=== PATIENT | female | born 1945 | race Caucasian/White ===

== ENCOUNTER 2021-11-13 08:02 | Inpatient (IN) | payer MEDICARE, OTHER ==
[2021-11-07 14:59] LABS: CLARITY,URINE SLIGHTLY CLOUDY (Clear); COLOR,URINE YELLOW (Yellow); GLUCOSE, URINE NEGATIVE (Neg); KETONES,URINE 15 mg/dl (Neg); LEUKOCYTE ESTERASE ,URINE NEGATIVE (Neg); NITRITES, URINE NEGATIVE (Neg); OCCULT BLOOD,URINE NEGATIVE (Neg); PH,URINE 5.5 (4.8-8.0); PROTEIN,URINE NEGATIVE (Neg); UROBILINOGEN,URINE 0.2 E.U/dL (0.2-1.0)
[2021-11-07 15:01] LABS: UA COLLECTION TYPE CLN CATCH MIDSTREAM
[2021-11-07 15:04] LABS: BACTERIA,URINE FEW /HPF (Neg); MUCUS STRANDS MODERATE /LPF (Neg); RBC,URINE 0-2 /HPF (0-2); SQUAMOUS EPITHELIAL CELL,UR MODERATE /LPF (FEW); WBC,URINE 0-4 /HPF (0-4)
[2021-11-07 15:05] LABS: TRANSITIONAL EPI CELLS,URINE FEW /HPF
[2021-11-07 15:08] LABS: BASOPHILS # (AUTO) 0.1 X10'3 (0-0.2); EOSINOPHILS # (AUTO) 0.3 X10'3 (0-0.9); EOSINOPHILS % (AUTO) 5.2 % (0-6); LYMPHOCYTES # (AUTO) 1.5 X10'3 (1.1-4.8); LYMPHOCYTES % (AUTO) 26.1 % (21-51); MEAN CORPUSCULAR HEMOGLOBIN 31.1 PG (27.0-31.0); MEAN CORPUSCULAR HGB CONC 33.3 g/dL (33.0-36.5); MEAN CORPUSCULAR VOLUME 93.5 FL (78-98); MEAN PLATELET VOLUME 8.8 FL (7.4-10.4); MONOCYTES # (AUTO) 0.5 X10'3 (0-0.9); MONOCYTES % (AUTO) 9.3 % (2-12); NEUTROPHILS # (AUTO) 3.4 X10'3 (1.8-7.7); NEUTROPHILS % (AUTO) 57.4 % (42-75); PRE OP HEMATOCRIT 42.4 % (35.0-45.0); PRE OP HEMOGLOBIN 14.1 g/dL (12.0-16.0); PRE OP PLATELET COUNT 239 X10'3 (140-440); RED BLOOD COUNT 4.53 X10'6 (4.20-5.60); RED CELL DISTRIBUTION WIDTH 15.2 % (11.5-14.5)
[2021-11-07 15:14] LABS: APTT 25 SECONDS (22-32); PRE OP INR 1.1 INR; PRE OP PROTIME 11.3 SECONDS (9.0-12.0)
[2021-11-07 15:22] LABS: ALBUMIN 3.8 G/DL (3.4-5.0); ALBUMIN/GLOBULIN RATIO 0.9 (1.1-1.5); ALKALINE PHOSPHATASE 56 IU/L (46-116); BLOOD UREA NITROGEN 30 MG/DL (7-18); BUN/CREATININE RATIO 31.3 (6.6-38.0); CALCIUM 9.3 MG/DL (8.5-10.1); CHLORIDE 105 MMOL/L (99-107); CREATININE 0.96 MG/DL (0.40-0.90); PRE OP ALT 45 U/L (30-65); PRE OP ANION GAP 9 (8-16); PRE OP AST 31 U/L (10-37); PRE OP BILIRUB, TOTAL 0.4 MG/DL (0.0-1.0); PRE OP GLUCOSE 99 MG/DL (70-104); PRE OP SODIUM 141 MMOL/L (135-145); TOTAL CARBON DIOXIDE 27.1 MMOL/L (24-32); TOTAL PROTEIN 7.9 G/DL (6.4-8.2); eGFR 57 ML/MIN
[~2021-11-13] VITALS: Ht 172.7 cm; Wt 102.6 kg
[2021-11-13] VITALS (24 sets, daily range): BP systolic 135–176; BP diastolic 47–83
[~2021-11-13 08:02] MED LIST: AMLO2.5T2 PO; BACL-11 PO; CELE-193 PO; CLOP75TA15 PO; DOCUMENT DATE & TIME OF BETA-BLOCKER PO ONE; ESCI10TA PO; GABAPENTIN; LISI40TA13 PO; METO-539 PO; NITR0.4T48 SL; PANT-47 PO; famotidine 20mg tablet PO ONE
[2021-11-13] MEDS ORDERED: GABA300C PO (08:47)
[2021-11-13] MEDS: ringers solution, lacted 1,000 ML IV SCH ×3 (08:49→18:12)
[2021-11-13] MEDS ORDERED: BUPIVAcaine 0.5% inj/PF 30 ML ONE (10:56)
[2021-11-13] MEDS ORDERED: midazolam 1 mg/ML 2ml injection ONE (11:26)
[2021-11-13] MEDS ORDERED: sevoflurane 250ml liquid IH ONE (11:26)
[2021-11-13] MEDS ORDERED: propofol inj 20 ML IV ONE (11:27)
[2021-11-13] MEDS ORDERED: rocuronium 10mg/ml inj IV ONE (11:27)
[2021-11-13] MEDS ORDERED: fentaNYL /PF 50mcg/ml 5ml ampule ONE (11:27)
[2021-11-13] MEDS ORDERED: ceFOXitin 2GM-NS 100mL ADDvant 100 ML IV ONE (11:30)
[2021-11-13] MEDS ORDERED: ceFOXitin 1000 MG inj ONE ×2 (11:49)
[2021-11-13] MEDS ORDERED: BUPIVAcaine 0.5% inj/PF 30 ml vial IJ ONE (12:02)
[2021-11-13] MEDS ORDERED: morphine 2 MG/ML inj. syringe IV PRN (12:15)
[2021-11-13] MEDS ORDERED: ondansetron/PF 4mg/2ml inj IV PRN (12:15)
[2021-11-13] MEDS ORDERED: meperidine/PF 25mg/ml syringe IV PRN ×2 (12:15)
[2021-11-13] MEDS ORDERED: proCHLORperazine 10 MG/2 ml inj IV PRN (12:15)
[2021-11-13] MEDS ORDERED: morphine 4 MG/ML inj SYRINge IV PRN (12:15)
[2021-11-13] MEDS ORDERED: ringers solution, lacted 1,000 ML IV SCH (12:15)
[2021-11-13] MEDS ORDERED: ondansetron/PF 4mg/2ml inj ONE (12:27)
[2021-11-13] MEDS ORDERED: dexamethasone sod phosphate 4mg/ml inj. ONE (12:27)
[2021-11-13] MEDS ORDERED: neostigmine methylsulfate 1 MG/ML 10ml vial ONE (12:38)
[2021-11-13] MEDS ORDERED: glycopyrrolate 0.2mg/ml inj ONE (12:39)
--- NOTE | 2021-11-13 13:32 | NUR ---
Received from OR via BED, accompanied by Anesthesiologist DR HANNA and report given by Anesthesiologist AND SENIOR BUSINESS MANAGER. PT DROWSY, ABDOMEN W/RIGHT SIDED INCISION W/DERMABOND CDI, KATHERINE TO BULB SX RIGHT ABDOMEN W/SANGUINOUS DRAINAGE. Addendum: 11/13/21 at 1358 by Kasey Gonzalez RN Amended: Links added.
[2021-11-13] MEDS: meperidine/PF 25mg/ml syringe IV PRN ×3 (13:40→14:32)
[2021-11-13] MEDS ORDERED: acetaminophen 1,000mg/100ml IV 100 ML IV ONE (14:50)
[2021-11-13] MEDS ORDERED: naloxone 0.4 mg/ml inj IV PRN (15:30)
[2021-11-13] MEDS ORDERED: ceFOXitin 1 GM/D5W 50mL IVPB 100 ML IV SCH (16:00)
[2021-11-13] MEDS ORDERED: ceFOXitin inj 1,000 MG in dextrose 5%-water 100 ML IV SCH (16:02)
--- NOTE | 2021-11-13 16:02 | NUR ---
Report called to receiving nurse. Transferred via BED W/2 BAGS Belongings AND 1 CANE TO ROOM 360B. RECEIVING RN AT BEDSIDE TO RECEIVE PT, BLL, CALL LIGHT GIVEN, SIDE RAILS UP X 2. PT STATES PAIN HAS IMPROVED. Special Issues communicated to receiving nurse. YES. Addendum: 11/13/21 at 1608 by Kasey Gonzalez RN Amended: Links added.
--- NOTE | 2021-11-13 18:13 | NUR ---
Problems reprioritized. Patient report given, questions answered & plan of care reviewed with Lilly ALBERTS.
--- NOTE | 2021-11-13 18:15 | NUR ---
Patient in room [facility]. I have received report from LEXUS Blanchard and had the opportunity to ask questions and assume patient care. Addendum: 11/13/21 at 1915 by Mino River RN Amended: Links added.
[2021-11-13] MEDS: HYDROcodone/acetaminophen 5mg/325mg tablet PO PRN (19:21)
[2021-11-13] MEDS ORDERED: baclofen 10mg tablet PO PRN (19:25)
[2021-11-13] MEDS: potassium CL 20mEq in D5-1/2NS 1,000 ML IV SCH (19:29)
[2021-11-13] MEDS ORDERED: nitroGLYCERIN 0.4mg SUBLingual tab SL PRN (19:30)
[2021-11-13] MEDS: pantoprazole 40mg Tablet.DR PO SCH ×2 (21:00→21:27)
[2021-11-13] MEDS ORDERED: clopidogrel 75mg tablet PO SCH (21:00)
[2021-11-13] MEDS: ESCITALOPRAM OXALATE 5 MG TABLET PO SCH (21:25)
[2021-11-13] MEDS: celeCOXIB 100mg capsule PO SCH (21:26)
[2021-11-13] MEDS: gabapentin 300mg capsule PO SCH (21:26)
[2021-11-13] MEDS: metoprolol succinate 25mg (24-HOUR) SR. Tablet PO SCH (21:26)
[2021-11-13] MEDS: HYDROcodone/acetaminophen 10/325mg tab PO PRN (23:22)
[2021-11-14] VITALS (12 sets, daily range): BP systolic 117–156; BP diastolic 44–86
[2021-11-14] MEDS: potassium CL 20mEq in D5-1/2NS 1,000 ML IV SCH ×4 (01:01→23:30)
[2021-11-14] MEDS: HYDROcodone/acetaminophen 10/325mg tab PO PRN ×3 (03:46→20:33)
--- NOTE | 2021-11-14 06:29 | NUR ---
Problems reprioritized. Patient report given, questions answered & plan of care reviewed with LEXUS Boykin. Addendum: 11/14/21 at 0629 by Mino River RN Amended: Links added.
[2021-11-14 06:38] LABS: BASOPHILS % (AUTO) 0.1 % (0-1); EOSINOPHILS % (AUTO) 0.1 % (0-6); HEMATOCRIT 40.9 % (35.0-45.0); HEMOGLOBIN 13.5 g/dl (12.0-16.0); LYMPHOCYTES # (AUTO) 0.8 X10'3 (1.1-4.8); LYMPHOCYTES % (AUTO) 9.7 % (21-51); MEAN CORPUSCULAR HEMOGLOBIN 30.7 PG (27.0-31.0); MEAN PLATELET VOLUME 8.8 FL (7.4-10.4); MONOCYTES # (AUTO) 0.8 X10'3 (0-0.9); MONOCYTES % (AUTO) 9.7 % (2-12); NEUTROPHILS # (AUTO) 6.9 X10'3 (1.8-7.7); NEUTROPHILS % (AUTO) 80.4 % (42-75); PLATELET COUNT 224 X10'3 (140-440); RED CELL DISTRIBUTION WIDTH 15.4 % (11.5-14.5); WHITE BLOOD COUNT 8.6 X10'3 (4.5-11.0)
[2021-11-14] MEDS: gabapentin 300mg capsule PO SCH ×2 (07:54→20:31)
[2021-11-14] MEDS: amLODIPine 5mg tablet PO SCH (07:54)
[2021-11-14] MEDS: lisinopril 20mg tablet PO SCH (07:54)
[2021-11-14] MEDS: HYDROmorphone inj. 0.5 MG/0.5 ML DISP.SYRIN IV PRN ×2 (10:25→14:39)
[2021-11-14] MEDS ORDERED: fentaNYL/PF 50MCG/1 ML 2ML syringe ONE (14:30)
[2021-11-14] MEDS ORDERED: diphenhydrAMINE 50 mg/ml inj ONE (14:32)
[2021-11-14] MEDS ORDERED: MIDAZolam 1 MG/ML 5ML VIAL ONE (14:32)
[2021-11-14] MEDS ORDERED: iohexol 300 MG/1 ML 50ml polymer ONE (14:32)
[2021-11-14] MEDS ORDERED: LIDOcaine Viscous 15ml cup ONE (14:32)
[2021-11-14] MEDS ORDERED: glucagon, human recombinant 1mg kit ONE (14:32)
[2021-11-14] MEDS: ESCITALOPRAM OXALATE 5 MG TABLET PO SCH (20:31)
[2021-11-14] MEDS: celeCOXIB 100mg capsule PO SCH (20:32)
[2021-11-14] MEDS: pantoprazole 40mg Tablet.DR PO SCH (20:32)
[2021-11-14] MEDS: metoprolol succinate 25mg (24-HOUR) SR. Tablet PO SCH (20:39)
[2021-11-15] VITALS (8 sets, daily range): BP systolic 131–152; BP diastolic 52–76
[2021-11-15] MEDS: potassium CL 20mEq in D5-1/2NS 1,000 ML IV SCH ×2 (01:51→11:01)
[2021-11-15] MEDS: HYDROcodone/acetaminophen 10/325mg tab PO PRN ×2 (01:54→17:29)
[2021-11-15 06:24] LABS: BASOPHILS # (AUTO) 0.1 X10'3 (0-0.2); BASOPHILS % (AUTO) 0.7 % (0-1); EOSINOPHILS # (AUTO) 0.4 X10'3 (0-0.9); EOSINOPHILS % (AUTO) 5.3 % (0-6); HEMATOCRIT 37.5 % (35.0-45.0); HEMOGLOBIN 12.7 g/dl (12.0-16.0); LYMPHOCYTES # (AUTO) 1.3 X10'3 (1.1-4.8); LYMPHOCYTES % (AUTO) 17.4 % (21-51); MEAN CORPUSCULAR HEMOGLOBIN 31.3 PG (27.0-31.0); MEAN CORPUSCULAR HGB CONC 33.7 g/dL (33.0-36.5); MEAN CORPUSCULAR VOLUME 92.9 FL (78-98); MEAN PLATELET VOLUME 9.2 FL (7.4-10.4); MONOCYTES # (AUTO) 0.8 X10'3 (0-0.9); MONOCYTES % (AUTO) 10.8 % (2-12); NEUTROPHILS # (AUTO) 4.9 X10'3 (1.8-7.7); NEUTROPHILS % (AUTO) 65.8 % (42-75); PLATELET COUNT 185 X10'3 (140-440); RED BLOOD COUNT 4.04 X10'6 (4.20-5.60); RED CELL DISTRIBUTION WIDTH 15.2 % (11.5-14.5); WHITE BLOOD COUNT 7.4 X10'3 (4.5-11.0)
--- NOTE | 2021-11-15 06:33 | NUR ---
Problems reprioritized. Patient report given, questions answered & plan of care reviewed with LEXUS Alcantara.
--- NOTE | 2021-11-15 06:42 | NUR ---
Patient in room [facility]. I have received report from celia ALBERTS and had the opportunity to ask questions and assume patient care.
[2021-11-15] MEDS: amLODIPine 5mg tablet PO SCH (08:58)
[2021-11-15] MEDS: lisinopril 20mg tablet PO SCH (08:58)
[2021-11-15] MEDS: gabapentin 300mg capsule PO SCH ×2 (08:58→20:46)
--- NOTE | 2021-11-15 13:23 | NUR ---
patient seen by Dr Steward, patient is to start regular diet. KATHERINE drainage observed, greenish color . Dr Steward aware. [place] given x1 for pain with good effect. BSx$ quad patient is passing gas.
--- NOTE | 2021-11-15 18:45 | NUR ---
Problems reprioritized. Patient report given, questions answered & plan of care reviewed with ramiro ALBERTS.
[2021-11-15] MEDS: clopidogrel 75mg tablet PO SCH (20:47)
[2021-11-15] MEDS: pantoprazole 40mg Tablet.DR PO SCH (20:47)
[2021-11-15] MEDS: celeCOXIB 100mg capsule PO SCH (20:47)
[2021-11-15] MEDS: metoprolol succinate 25mg (24-HOUR) SR. Tablet PO SCH (20:47)
[2021-11-15] MEDS: ESCITALOPRAM OXALATE 5 MG TABLET PO SCH (20:48)
[2021-11-15] MEDS: HYDROcodone/acetaminophen 5mg/325mg tablet PO PRN (23:49)
[2021-11-16] VITALS: BP 144/66
[2021-11-16] MEDS: potassium CL 20mEq in D5-1/2NS 1,000 ML IV SCH ×2 (01:55→18:31)
[2021-11-16] MEDS: HYDROcodone/acetaminophen 5mg/325mg tablet PO PRN (05:38)
--- NOTE | 2021-11-16 06:47 | NUR ---
Patient in room [facility]. I have received report from Bessie ALBERTS and had the opportunity to ask questions and assume patient care.
[2021-11-16 07:16] VITALS: BP 161/67
[2021-11-16 07:37] LABS: BASOPHILS % (AUTO) 0.8 % (0-1); EOSINOPHILS # (AUTO) 0.5 X10'3 (0-0.9); EOSINOPHILS % (AUTO) 8.8 % (0-6); HEMATOCRIT 36.6 % (35.0-45.0); HEMOGLOBIN 12.2 g/dl (12.0-16.0); LYMPHOCYTES % (AUTO) 15.9 % (21-51); MEAN CORPUSCULAR HEMOGLOBIN 31.5 PG (27.0-31.0); MEAN CORPUSCULAR HGB CONC 33.4 g/dL (33.0-36.5); MEAN CORPUSCULAR VOLUME 94.4 FL (78-98); MEAN PLATELET VOLUME 8.6 FL (7.4-10.4); MONOCYTES # (AUTO) 0.8 X10'3 (0-0.9); MONOCYTES % (AUTO) 12.5 % (2-12); NEUTROPHILS # (AUTO) 3.7 X10'3 (1.8-7.7); PLATELET COUNT 182 X10'3 (140-440); RED BLOOD COUNT 3.88 X10'6 (4.20-5.60)
[2021-11-16] MEDS: gabapentin 300mg capsule PO SCH ×2 (07:47→19:17)
[2021-11-16] MEDS: lisinopril 20mg tablet PO SCH (07:48)
[2021-11-16] MEDS: amLODIPine 5mg tablet PO SCH (07:48)
[2021-11-16 12:08] VITALS: BP 157/62
[2021-11-16] MEDS ORDERED: magnesium hydroxide 30ml (MOM) UD suspension PO ONE (12:15)
--- NOTE | 2021-11-16 18:29 | NUR ---
Problems reprioritized. Patient report given, questions answered & plan of care reviewed with Diya ALBERTS.
[2021-11-16 19:00] VITALS: BP 144/72
[2021-11-16] MEDS: HYDROcodone/acetaminophen 10/325mg tab PO PRN ×2 (19:18→23:56)
[2021-11-16] MEDS: metoprolol succinate 25mg (24-HOUR) SR. Tablet PO SCH (20:36)
[2021-11-16] MEDS: ESCITALOPRAM OXALATE 5 MG TABLET PO SCH (20:36)
[2021-11-16] MEDS: clopidogrel 75mg tablet PO SCH (20:36)
[2021-11-16] MEDS: celeCOXIB 100mg capsule PO SCH (20:36)
[2021-11-16] MEDS: pantoprazole 40mg Tablet.DR PO SCH (20:36)
[2021-11-17] VITALS: BP 131/67
--- NOTE | 2021-11-17 06:28 | NUR ---
Patient in room [facility]. I have received report from ARDEN ALBERTS and had the opportunity to ask questions and assume patient care.
[2021-11-17 06:58] VITALS: BP 168/72
[2021-11-17] MEDS: lisinopril 20mg tablet PO SCH (07:08)
[2021-11-17] MEDS: amLODIPine 5mg tablet PO SCH (07:09)
[2021-11-17] MEDS: gabapentin 300mg capsule PO SCH ×2 (07:09→20:44)
[2021-11-17] MEDS: HYDROcodone/acetaminophen 10/325mg tab PO PRN ×3 (07:09→17:06)
[2021-11-17 08:46] LABS: BASOPHILS # (AUTO) 0.1 X10'3 (0-0.2); EOSINOPHILS # (AUTO) 0.6 X10'3 (0-0.9); EOSINOPHILS % (AUTO) 11.8 % (0-6); HEMATOCRIT 38.5 % (35.0-45.0); HEMOGLOBIN 12.9 g/dl (12.0-16.0); LYMPHOCYTES # (AUTO) 0.9 X10'3 (1.1-4.8); LYMPHOCYTES % (AUTO) 19.2 % (21-51); MEAN CORPUSCULAR HEMOGLOBIN 31.5 PG (27.0-31.0); MEAN CORPUSCULAR HGB CONC 33.5 g/dL (33.0-36.5); MEAN CORPUSCULAR VOLUME 94.1 FL (78-98); MEAN PLATELET VOLUME 8.6 FL (7.4-10.4); MONOCYTES # (AUTO) 0.6 X10'3 (0-0.9); MONOCYTES % (AUTO) 12.6 % (2-12); NEUTROPHILS # (AUTO) 2.7 X10'3 (1.8-7.7); NEUTROPHILS % (AUTO) 55.4 % (42-75); PLATELET COUNT 185 X10'3 (140-440); RED BLOOD COUNT 4.09 X10'6 (4.20-5.60); WHITE BLOOD COUNT 4.9 X10'3 (4.5-11.0)
[2021-11-17 08:58] LABS: ALANINE AMINOTRANSFERASE 35 U/L (12-78); ALBUMIN 2.7 G/DL (3.4-5.0); ALBUMIN/GLOBULIN RATIO 0.7 (1.1-1.5); ALKALINE PHOSPHATASE 45 IU/L (46-116); ASPARTATE AMINO TRANSFERASE 22 U/L (10-37); BILIRUBIN,TOTAL 0.6 MG/DL (0.1-1.0); BLOOD UREA NITROGEN 14 MG/DL (7-18); BUN/CREATININE RATIO 18.7 (6.6-38.0); CALCIUM 8.7 MG/DL (8.5-10.1); CHLORIDE 105 MMOL/L (99-107); CREATININE 0.75 MG/DL (0.40-0.90); GLUCOSE 99 MG/DL (70-104); SODIUM 144 MMOL/L (135-145); TOTAL PROTEIN 6.8 G/DL (6.4-8.2); eGFR 75 ML/MIN
[2021-11-17 09:00] LABS: ANION GAP 8 (8-16); TOTAL CARBON DIOXIDE 30.8 MMOL/L (24-32)
--- NOTE | 2021-11-17 10:19 | NUR ---
Initial: Pt admitted w/ cholecystitis, underwent open hemicholecystectomy this admit per EMR. Currently on Regular diet since 11/15 w/ mostly 75% avg intake of meals, previously 100% on clears. Pt could benefit from Luis Antonio smoothies BID to assist w/ wound healing. LBM 11/12, received one time does of MoM, recommend additional routine bowel care if MD agreeable. Will continue to monitor. Recs: 1. Continue Regular diet as tolerated 2. Luis [place] smoothies BIDBD; pending MD verification 3. Routine bowel care 4. Weekly wts Addendum: 11/17/21 at [address] Amended: Links added.
[2021-11-17 11:36] VITALS: BP 139/62
[2021-11-17] MEDS ORDERED: magnesium hydroxide 30ml (MOM) UD suspension PO ONE (13:30)
[2021-11-17] MEDS: potassium CL 20mEq in D5-1/2NS 1,000 ML IV SCH (17:27)
[2021-11-17] MEDS ORDERED: JUVEN Smoothie Arginine/Glut./Ca2+Bmb (Juven 19.3pkt) 240ml cup PO SCH (17:30)
--- NOTE | 2021-11-17 18:33 | NUR ---
Patient in room [facility]. I have received report from Cecelia ALBERTS and had the opportunity to ask questions and assume patient care.
--- NOTE | 2021-11-17 18:48 | NUR ---
Problems reprioritized. Patient report given, questions answered & plan of care reviewed with jonelle luo.
[2021-11-17 19:00] VITALS: BP 156/63
[2021-11-17] MEDS: pantoprazole 40mg Tablet.DR PO SCH (20:45)
[2021-11-17] MEDS: metoprolol succinate 25mg (24-HOUR) SR. Tablet PO SCH (20:45)
[2021-11-17] MEDS: celeCOXIB 100mg capsule PO SCH (20:45)
[2021-11-17] MEDS: ESCITALOPRAM OXALATE 5 MG TABLET PO SCH (20:45)
[2021-11-17] MEDS: clopidogrel 75mg tablet PO SCH (20:45)
[2021-11-17 22:00] VITALS: BP 172/68
[2021-11-18 02:00] VITALS: BP 133/61
--- NOTE | 2021-11-18 02:57 | NUR ---
patient appears comfortable . Continuous pulse ox and o2@2L in place for sleeping. o2 sats 97%. KATHERINE drain draining small amounts of brownish drainage. will continue to monitor
[2021-11-18] MEDS: HYDROcodone/acetaminophen 10/325mg tab PO PRN (03:59)
--- NOTE | 2021-11-18 05:49 | NUR ---
[place] given for pain patient sleeping
--- NOTE | 2021-11-18 06:28 | NUR ---
Problems reprioritized. Patient report given, questions answered & plan of care reviewed with Cecelia ALBERTS.
--- NOTE | 2021-11-18 06:40 | NUR ---
Patient in room [facility]. I have received report from DANIELLA ALBERTS and had the opportunity to ask questions and assume patient care.
[2021-11-18 06:47] LABS: BASOPHILS # (AUTO) 0.1 X10'3 (0-0.2); BASOPHILS % (AUTO) 1.6 % (0-1); EOSINOPHILS # (AUTO) 0.5 X10'3 (0-0.9); EOSINOPHILS % (AUTO) 11.8 % (0-6); HEMATOCRIT 40.1 % (35.0-45.0); HEMOGLOBIN 13.2 g/dl (12.0-16.0); LYMPHOCYTES # (AUTO) 1.1 X10'3 (1.1-4.8); MEAN CORPUSCULAR HEMOGLOBIN 31.1 PG (27.0-31.0); MEAN CORPUSCULAR VOLUME 94.3 FL (78-98); MEAN PLATELET VOLUME 8.7 FL (7.4-10.4); MONOCYTES # (AUTO) 0.6 X10'3 (0-0.9); MONOCYTES % (AUTO) 13.2 % (2-12); NEUTROPHILS # (AUTO) 2.3 X10'3 (1.8-7.7); NEUTROPHILS % (AUTO) 50.4 % (42-75); PLATELET COUNT 193 X10'3 (140-440); RED BLOOD COUNT 4.25 X10'6 (4.20-5.60); RED CELL DISTRIBUTION WIDTH 14.7 % (11.5-14.5); WHITE BLOOD COUNT 4.6 X10'3 (4.5-11.0)
[2021-11-18 06:50] VITALS: BP 146/55
[2021-11-18] MEDS: gabapentin 300mg capsule PO SCH (08:22)
[2021-11-18] MEDS: lisinopril 20mg tablet PO SCH (08:23)
[2021-11-18] MEDS: amLODIPine 5mg tablet PO SCH (08:23)
--- NOTE | 2021-11-18 09:06 | NUR ---
performed medication pass with licensed nursing assistant Jayshree
--- NOTE | 2021-11-18 09:29 | NUR ---
reviewed skilled nursing facility counselor Scott physical assessment documentation
[2021-11-18 10:30] VITALS: BP 146/59
[2021-11-18] MEDS: potassium CL 20mEq in D5-1/2NS 1,000 ML IV SCH (11:16)
[2021-11-18] MEDS: HYDROcodone/acetaminophen 5mg/325mg tablet PO PRN (11:24)
--- NOTE | 2021-11-18 12:53 | NUR ---
RECD CALL FROM DR SOUZA. OK TO DC PT HOME. ASKED ME TO CALL HIS OFFICE AND HAVE [facility] CALLED IN AND PT TO FOLLOW UP IN HIS OFFICE TOMORROW AT 1100. I CALLED HIS OFFICE, THEY STATED THAT [facility] WERE CALLED IN PRIOR TO SURGERY 11/13 TO [facility]. THEY SET PTS APPT FOR TOMORROW AT 1100.
--- NOTE | 2021-11-18 13:00 | NUR ---
PT DISCHARGED IN STABLE CONDITION. LEFT FACILITY IN PRIVATE VEHICLE WITH DAUGHTER. IV DC BY POURER BUGGY LADLE. KATHERINE DRAIN IN PLACE PER DR SOUZA ORDER. PT TO F/U IN HIS OFFICE TOMORROW, APPT MADE FOR 1100, PT AWARE. FOLLOW UP INSTRUCTIONS GIVEN, [facility] Peng VILLAFANA. ALL BELONGINGS IN HAND. Addendum: 11/18/21 at 1617 by Silvia Gomez RN Amended: Links added.
--- NOTE | 2021-11-18 13:04 | NUR ---
PER DR SOUZA KATHERINE TO STAY IN PLACE , NOT TO BE REMOVED BEFORE DC HOME
[2021-11-18 13:15] VITALS: BP 120/63
--- NOTE | 2021-11-18 15:29 | NUR ---
reviewed inpatient nursing aide Pino physical assessment charting
--- NOTE | 2021-11-18 16:49 | NUR ---
TIME OF INTERVENTION INCORRECT, PT DC TIME 1400 Addendum: 11/18/21 at 1650 by Silvia Gomez RN Amended: Links added.
== END 2021-11-18 13:50 | disposition home or self-care (01) | DRG 416 ==
LOC: PAS 08:02 → SUR 3N 15:29 → UNDOADMIN 15:29 → SUR 3N 15:39 → ORTHO 4S 11-17 14:43
PROVIDERS: ADMIT Surgery; ATTEND Surgery
PROC: 0FJ44ZZ Inspection of Gallbladder, Percutaneous Endoscopic Approach (ICD-10-PCS; 2021-11-13)
PROC: 0FB40ZZ Excision of Gallbladder, Open Approach (ICD-10-PCS; principal; 2021-11-13 11:26)
PROC: 0F798DZ Dilation of Common Bile Duct with Intraluminal Device, Via Natural or Artificial Opening Endoscopic (ICD-10-PCS; 2021-11-14)
DX: K81.1 Chronic cholecystitis (principal); I25.10 Atherosclerotic heart disease of native coronary artery without angina pectoris; Z96.649 Presence of unspecified artificial hip joint; G47.30 Sleep apnea, unspecified; M19.90 Unspecified osteoarthritis, unspecified site; I25.2 Old myocardial infarction; K83.9 Disease of biliary tract, unspecified; K21.9 Gastro-esophageal reflux disease without esophagitis; I10 Essential (primary) hypertension; E66.9 Obesity, unspecified; Z53.31 Laparoscopic surgical procedure converted to open procedure; Z82.0 Family history of epilepsy and other diseases of the nervous system; Z85.3 Personal history of malignant neoplasm of breast; Z85.41 Personal history of malignant neoplasm of cervix uteri; Z91.81 History of falling; Z92.21 Personal history of antineoplastic chemotherapy; Z92.3 Personal history of irradiation; Z95.1 Presence of aortocoronary bypass graft; Z87.891 Personal history of nicotine dependence; Z98.1 Arthrodesis status; Z68.34 Body mass index [BMI] 34.0-34.9, adult
CPT/HCPCS: 36415; 43262; 43274; 80053; 81001; 82948; 85025; 85610; 85730; 88304; 94760; 97116; 97161; 97530; 99152; 99153; A4215; A4618; A4620; A7000; C1769; C2625; G0378; J0131; J0694; J1100; J1170; J1200; J1610; J2175; J2250; J2270; J2405; J2704; J2710; J3010; J3480; J3490; J7030; J7060; J7120; Q9967; S0020; U0003; U0005

== ENCOUNTER 2022-01-15 06:41 | Day surgery (SDC) | payer MEDICARE, OTHER ==
[~2022-01-15] VITALS: Ht 172.7 cm; Wt 95.4 kg
[2022-01-15] VITALS (8 sets, daily range): BP systolic 138–177; BP diastolic 56–81
[~2022-01-15 06:41] MED LIST changes: -DOCUMENT DATE & TIME OF BETA-BLOCKER PO ONE; +GABA300C PO; -GABAPENTIN; -famotidine 20mg tablet PO ONE
[2022-01-15] MEDS ORDERED: MIDAZolam 1 MG/ML 5ML VIAL ONE (06:57)
[2022-01-15] MEDS ORDERED: fentaNYL/PF 50MCG/1 ML 2ML syringe ONE (06:57)
[2022-01-15] MEDS ORDERED: levoFLOXACIN-Levaquin 500mg/D5 100 ML IV ONE (06:57)
[2022-01-15] MEDS ORDERED: diphenhydrAMINE 50 mg/ml inj ONE (06:57)
[2022-01-15] MEDS ORDERED: LIDOcaine Viscous 15ml cup ONE (06:58)
[2022-01-15] MEDS ORDERED: iohexol 300 MG/1 ML 50ml polymer ONE (06:58)
[2022-01-15] MEDS ORDERED: glucagon, human recombinant 1mg kit ONE (06:58)
[2022-01-15] MEDS ORDERED: OMEGA PO (07:35)
[2022-01-15] MEDS ORDERED: VITA400T10 PO (07:36)
[2022-01-15] MEDS ORDERED: ASCO-139 PO (07:37)
[2022-01-15] MEDS ORDERED: OMEG-15 PO (07:37)
[2022-01-15] MEDS ORDERED: SUPER B COMPLEX PO (07:39)
[2022-01-15] MEDS ORDERED: VITAMIN D3 PO (07:42)
[2022-01-15] MEDS ORDERED: UBID100C16 PO (07:42)
[2022-01-15] MEDS ORDERED: TUMERIC PO (07:44)
== END 2022-01-15 10:48 | disposition home or self-care (01) ==
LOC: GI LAB 06:41
PROVIDERS: ATTEND Internal Medicine Gastroenterology
DX: K83.8 Other specified diseases of biliary tract (principal); I10 Essential (primary) hypertension; I25.2 Old myocardial infarction; G43.909 Migraine, unspecified, not intractable, without status migrainosus; Z90.49 Acquired absence of other specified parts of digestive tract; Z87.891 Personal history of nicotine dependence; Z79.899 Other long term (current) drug therapy; Z95.1 Presence of aortocoronary bypass graft; Z88.8 Allergy status to other drugs, medicaments and biological substances
CPT/HCPCS: 43260; 74018; 74328; C1769; G0500; J1956; J2250; J3010; J7030; Q9967; Z7512; Z7610; 99152; A4620; J1200; J1610

== ENCOUNTER 2023-07-07 12:45 | Emergency (ER) | payer MEDICARE, OTHER ==
[~2023-07-07] VITALS: Ht 170.2 cm; Wt 92.6 kg
[~2023-07-07 12:45] MED LIST changes: +ASCO-139 PO; +OMEG-15 PO; +OMEGA PO; +SUPER B COMPLEX PO; +TUMERIC PO; +UBID100C16 PO; +VITA400T10 PO; +VITAMIN D3 PO
[2023-07-07] MEDS ORDERED: acetaminophen 325mg tablet PO ONE (17:20)
[2023-07-07 19:13] VITALS: BP 150/60; PULSE 50; RESP 16; TEMP 97.8; O2SAT 96
== END 2023-07-07 19:16 | disposition home or self-care (01) ==
LOC: ER 12:45
DX: M25.511 Pain in right shoulder (principal); S16.1XXA Strain of muscle, fascia and tendon at neck level, initial encounter; Z79.01 Long term (current) use of anticoagulants; Z88.8 Allergy status to other drugs, medicaments and biological substances; Z79.899 Other long term (current) drug therapy
CPT/HCPCS: 72125; 73030; 73502; 99284; A4565